=== PATIENT | female | born 1975 | race Asian ===

== ENCOUNTER 2021-05-17 15:35 | Emergency (ER) | payer OTHER ==
[~2021-05-17] VITALS: Ht 157.5 cm; Wt 55.0 kg
[2021-05-17] MEDS ORDERED: ONDANSETRON 4MG ODT PO ONE (17:00)
[2021-05-17] MEDS ORDERED: HYDROCODONE/ACETAMINOPHEN 5/325MG TABLET PO ONE (17:00)
[2021-05-17 17:06] VITALS: BP 130/78
[2021-05-17] MEDS ORDERED: HYDR-4001 MT (17:20)
[2021-05-17] MEDS ORDERED: ONDA4TAB11 PO (17:20)
== END 2021-05-17 17:38 | disposition home or self-care (01) ==
LOC: ER 15:35
DX: S92.344A Nondisplaced fracture of fourth metatarsal bone, right foot, initial encounter for closed fracture (principal); S92.354A Nondisplaced fracture of fifth metatarsal bone, right foot, initial encounter for closed fracture; X50.1XXA Overexertion from prolonged static or awkward postures, initial encounter; Y93.89 Activity, other specified; Y92.481 Parking lot as the place of occurrence of the external cause
CPT/HCPCS: 73610; 73630; 99284; Q0162